=== PATIENT | male | born 1970 | race Caucasian/White ===

== ENCOUNTER 2017-01-07 12:04 | Emergency (ER) | payer SELFPAY ==
--- NOTE | ~2017-01-07 | CR142 ---
[facility]. [facility] A Service of [facility] & [facility] RADIOLOGY TEXT RESULTS PATIENT: CATHY PACK LOCATION: SED : 68 UNIT #: [id number] AGE: [address]: Davon Fischer MD SEX: M ORDER DR: [id number] [place] [id number] E MR#: [id number] Acc #: [id number] NAME: CATHY PACK. : 1970 SEX: M STUDY DATE/TIME: 01/07/2017 11:55 UNIT: SED ROOM: STUDY DESCRIPTION: CR Hand Min 3 Views Rt Attending Physician: Davon Fischer M.D. Ordering Physician: Davon Fischer M.D. Primary Care Physician: No Primary Care Physician MEDICAL IMAGING REPORT This report is preliminary unless electronic signature is present. EXAM Right hand 3 views 01/07/2017 1155 hours HISTORY Patient cut palm on sheet metal 10 days ago with pain and swelling of hand. COMPARISON None. FINDINGS AP, lateral and oblique views demonstrate no fracture, dislocation or radiopaque foreign body. There is some lucency or edema in the palmar soft tissues as seen on the lateral view. IMPRESSION No fracture, dislocation or radiopaque foreign body. There is some edema and lucency in the palmar soft tissues as seen on the lateral view. Dictated by... Maria M Black M.D. THIS IS AN ELECTRONICALLY VERIFIED REPORT Maria M Black M.D. at 01/07/2017 2:07 PM Nathalia TD: 01/07/2017 13:48 JOB #: [id number] MEDICAL IMAGING REPORT Page 1 of 1
[~2017-01-07 12:04] MED LIST: FLEXERIL10 MG PO; MEDROL PO; NAPROSYN500 MG PO; NO MEDICATIONS; PRILOSEC PO; ROBAXIN500 MG PO; ULTRAM PO; VICODIN 5/500 T1 TAB PO; VOLTAREN75 MG PO
[2017-01-07 12:27] LABS: BASOPHIL# 0.1 X10e3 (0-0.3); BASOPHIL% 0.9 % (0-2.5); EOSINOPHIL# 0.1 X10e3 (0-0.7); EOSINOPHIL% 1.4 % (0.0-7.0); HEMATOCRIT 45.1 % (38.0-50.0); HEMOGLOBIN 15.5 gm/dL (13.0-16.0); LYMPHOCYTE# 1.9 X10e3 (1.0-3.5); LYMPHOCYTE% 20.4 % (17.0-45.0); MEAN CELL VOLUME 98.1 FL (83-96); MEAN CORPUSCULAR HEMOGLOBIN 33.8 PG (28-34); MEAN CORPUSCULAR HGB CONC 34.4 g/dL (30-36); MEAN PLATELET VOLUME 8.3 FL (6.5-11.5); MONOCYTE# 0.9 X10e3 (0-1.0); MONOCYTE% 9.5 % (3.0-12.0); NEUTROPHIL# 6.2 X10e3 (1.5-7.1); NEUTROPHIL% 67.8 % (40-75); PLATELET COUNT 165 X10e3 (140-420); RED CELL DISTRIBUTION WIDTH 12.9 % (11.0-15.5); WHITE BLOOD COUNT 9.1 X10e3 (4.0-10.5)
[2017-01-07 12:28] LABS: DIFF IND NO
[2017-01-07 12:46] LABS: BUN/CREATININE RATIO 8.75; CALCIUM SERUM 9.3 mg/dL (8.4-10.2); CREATININE SERUM 0.8 mg/dL (0.6-1.4); GLOM FILT RATE Estimated 106.4 mL/min (>60); POTASSIUM 4.1 mmol/L (3.5-5.1)
== END 2017-01-07 13:29 ==
LOC: SED 12:04
PROVIDERS: Emergency Medicine
DX: L03.113 Cellulitis of right upper limb (principal); F17.200 Nicotine dependence, unspecified, uncomplicated; Z23 Encounter for immunization
CPT/HCPCS: 36415; 73130; 80048; 85025; 90471; 90715; 96365; 99284